=== PATIENT | male | born 1960 | race African-American/Black ===

== ENCOUNTER 2018-03-08 06:44 | Outpatient (CLI) | payer BC ==
--- NOTE | 2018-03-08 09:16 | ULT ---
HEPATIC DOPPLER WITH GRAYSCALE AND DOPPLER IMAGING: Indication: Viral Hepatitis C. FINDINGS: No focal hepatic lesion. Doppler evaluation performed of the hepatic and portal venous systems reveal appropriate patency and direction of flow. There is patency of the hepatic and splenic arteries. No ascites of significance is visualized. Common duct is normal. No acute gallbladder pathology. IMPRESSION: 1. Normal doppler evaluation of the liver. 2. No acute intraabdominal process is seen. POS: [facility]
== END 2018-03-08 06:45 | disposition home or self-care (01) ==
LOC: BICULT 06:44
PROVIDERS: ATTEND Internal Medicine Gastroenterology
DX: B18.2 Chronic viral hepatitis C (principal); R79.89 Other specified abnormal findings of blood chemistry
CPT/HCPCS: 76705

== ENCOUNTER 2018-03-29 06:42 | Day surgery (SDC) | payer BC ==
[2018-03-26 15:47] VITALS: BMI 27.5
[2018-03-29 08:27] LABS: PTT 32.1 SEC (22.9-36.1); Prothrombin Time 13.2 SEC (12.0-14.7)
[2018-03-29] MEDS ORDERED: hydrALAZINE 25 MG TAB PO ONE (09:00)
[2018-03-29] MEDS ORDERED: Midazolam HCl 2 mg/2 ml Vial ONE (10:38)
[2018-03-29] MEDS ORDERED: Lidocaine 1% PF 5 ML VIAL ONE (10:39)
[2018-03-29] MEDS ORDERED: Sodium Bicarbonate 2.5 MEQ/5 ML VIAL ONE (10:39)
[2018-03-29] MEDS ORDERED: Fentanyl 100 MCG/2 ML VIAL ONE (10:39)
[2018-03-29] MEDS ORDERED: Acetaminophen 500 MG TAB ONE (11:28)
[2018-03-29 13:06] VITALS: BP 188/101; TEMP 98.1
--- NOTE | 2018-03-29 13:30 | ULT ---
ULTRASOUND GUIDED LIVER BIOPSY: Date: 03/29/18 HISTORY: Abnormal liver scan. Abnormal LFTs. COMPARISON: Ultrasound dated 03/08/18. FINDINGS: The patient was brought to the ultrasound suite. All questions were answered. Initially, the patient's blood pressure was too high to perform the exam; therefore, hydralazine 25 m g was given PO. After the blood pressure dropped to approximately 145/80, informed consent was obtain ed and timeout performed. 7 mL of lidocaine was instilled into the superficial and deep soft tissues. 25 mcg of Fentanyl and 0.5 mg of Versed was administered intravenously by the supervising nurse. After adequate anesthesia, a small dermatotomy was made. Using a 17 gauge introducer, the left lobe o f the liver was accessed. Using an 18 gauge needle, a total of two 22 mm cores were obtained. The pat ient tolerated the procedure well and without complication. IMPRESSION: Technically successful ultrasound guided liver biopsy. POS: [facility]
== END 2018-03-29 12:35 | disposition home or self-care (01) ==
LOC: ULT 06:42
PROVIDERS: ATTEND Internal Medicine Gastroenterology
PROC: 0FB23ZX Excision of Left Lobe Liver, Percutaneous Approach, Diagnostic (ICD-10-PCS; principal; 2018-03-29)
DX: B18.2 Chronic viral hepatitis C (principal); I10 Essential (primary) hypertension; Z87.891 Personal history of nicotine dependence; Z79.899 Other long term (current) drug therapy
CPT/HCPCS: 36415; 47000; 76942; 85610; 85730; 88307; 88313; J2001; J2250; J3010